=== PATIENT | male | born 1995 | race Two or more races ===

== ENCOUNTER 2021-02-25 20:03 | Emergency (ER) | payer OTHER ==
[~2021-02-25] VITALS: Ht 175.3 cm; Wt 78.4 kg
--- NOTE | 2021-02-25 20:32 | NUR ---
Patient is a [place] speaker, he is here as a tourist.
[2021-02-25] MEDS ORDERED: LIDOcaine 1% W/epiNEPHrine 1:200,000 10ml vial IJ ONE (21:30)
[2021-02-25] MEDS ORDERED: TETanus/Pertussis (Acell)/Diphther VAC/PF (Tdap-Adult) 0.5ml syringe IMVAC ONE (21:30)
[2021-02-25] MEDS ORDERED: CEPH250T PO (22:00)
[2021-02-25 22:42] VITALS: BP 112/70
== END 2021-02-25 22:43 | disposition home or self-care (01) ==
LOC: ER 20:06 → EDBD 20:06 → ER 22:43
DX: S61.412A Laceration without foreign body of left hand, initial encounter (principal); F17.200 Nicotine dependence, unspecified, uncomplicated; Z20.3 Contact with and (suspected) exposure to rabies; Z79.2 Long term (current) use of antibiotics; X58.XXXA Exposure to other specified factors, initial encounter; Y93.89 Activity, other specified; Y92.89 Other specified places as the place of occurrence of the external cause; Y99.8 Other external cause status
CPT/HCPCS: 12002; 90471; 90715; 99283